=== PATIENT | female | born 1950 | race Caucasian/White ===

== ENCOUNTER 2019-06-18 12:26 | Observation (INO) | payer MEDICARE, BC ==
[2019-06-18 13:24] LABS: ANION GAP 11.7 mmol/L (5-15); CHLORIDE,CL 105 mmol/L (98-115); SODIUM,NA 139 mmol/L (136-145)
[2019-06-18] MEDS ORDERED: Sodium Chloride 0.9% 10 ML Syringe FLUSH PRN (13:28)
[2019-06-18] MEDS ORDERED: EPINEPHrine 1:10,000 1 MG/10 ML Syringe IVPUSH PRN (13:49)
[2019-06-18] MEDS ORDERED: Atropine 0.1 MG/ML 10 ML Syringe IVPUSH PRN (13:49)
[2019-06-18] MEDS ORDERED: Lidocaine 2% 100 MG/5 ML Syringe IVPUSH PRN (13:49)
[2019-06-18] MEDS ORDERED: Nitroglycerin 0.4 MG Tab.SL SL PRN (13:49)
--- NOTE | 2019-06-18 14:24 | CR ---
[id number] RAD/RAD Chest PA And Lateral EXAM: RAD Chest PA And Lateral INDICATION: RULE OUT MYOCARDIAL INFARCTION. COMPARISON: None. DISCUSSION: Cardiomediastinal silhouette is normal in size and contour. No infiltrate, effusion, pneumothorax, or edema. IMPRESSION: No acute cardiopulmonary abnormality. Raymond Mccoy DO 06/18/19 1423 Thank you for allowing us to participate in the care of your patient.
[2019-06-18] MEDS ORDERED: Aspirin 81 MG Tab.Chew ONE (19:48)
[2019-06-18] MEDS ORDERED: Aspirin 81 MG Tab.Chew PO ONE (19:54)
[2019-06-18] MEDS ORDERED: Heparin Sodium/0.45% NaCl 25,000 UNITS/250 ML BAG IV SCH ×3 (20:15→20:45)
[2019-06-18] MEDS: Heparin Sodium 5,000 Units/ML Vial ONE ×2 (20:21→20:48)
[2019-06-18] MEDS ORDERED: Heparin Sodium 5,000 Units/ML Vial IVPUSH ONE (20:23)
[2019-06-18] MEDS ORDERED: Acetaminophen 325 MG Tab ONE (20:31)
[2019-06-18] MEDS ORDERED: Acetaminophen 325 MG Tab PO ONE (20:36)
[2019-06-18] MEDS ORDERED: Metoprolol Tartrate 25 MG Tab PO ONE (20:46)
[2019-06-18] MEDS ORDERED: Losartan 50 MG Tab PO SCH (21:00)
[2019-06-18] MEDS ORDERED: Aspirin 81 MG Tab.EC PO SCH (21:00)
[2019-06-18] MEDS ORDERED: Losartan 25 MG Tab PO SCH (21:11)
[2019-06-18] MEDS ORDERED: Heparin Sodium/0.45% NaCl 25,000 UNITS/250 ML BAG IV ONE (22:00)
[2019-06-19] MEDS ORDERED: FLUoxetine 10 MG Cap PO SCH (09:00)
[2019-06-19] MEDS ORDERED: Cholecalciferol (Vitamin D3) 25 MCG Tab PO SCH (12:00)
--- NOTE | 2019-06-26 08:13 | DISCH ---
This 69-year-old female was admitted to the hospital with initially complaints of nausea and chest tightness. The patient had a strong family history for coronary artery disease. Risk factors also include being a newly diagnosed diabetic and a history of hypertension. The patient was evaluated initially at the clinic where her EKG showed nonspecific ST-T wave changes in the anterior leads. The patient was admitted to the [facility] on a rule-out IA protocol. The patient's initial troponin was normal; however, repeat troponin at 8 hours was elevated at 0.58. The patient continued to complain of some heaviness in her chest. EKG continued to show nonspecific ST-T wave changes. In view of the above findings, Cardiology was contacted at [facility]. The case was discussed with Dr. Walton, and patient was then set up for transfer to [place] for workup of the [id number] myocardial infarction. Prior to discharge, patient was given bolus of 5000 units of heparin, and started on a drip of 1000 units/hour in addition to aspirin. [facility] was contacted, and the patient was transferred to [facility] for further care. /[id number]/[id number]
== END 2019-06-18 20:30 ==
LOC: KA.MS 12:26
PROVIDERS: ADMIT Internal Medicine; ATTEND Internal Medicine
DX: R07.89 Other chest pain (principal); R11.0 Nausea; I10 Essential (primary) hypertension; E11.9 Type 2 diabetes mellitus without complications; E78.5 Hyperlipidemia, unspecified; Z88.5 Allergy status to narcotic agent; Z91.018 Allergy to other foods; Z82.49 Family history of ischemic heart disease and other diseases of the circulatory system; Z79.84 Long term (current) use of oral hypoglycemic drugs; Z79.82 Long term (current) use of aspirin; Z79.899 Other long term (current) drug therapy
CPT/HCPCS: 36415; 71046; 80053; 84484; 85025; 93005; 96372; 96374; A9270; G0378; J1644